=== PATIENT | female | born 1945 | race Caucasian/White ===

== ENCOUNTER 2023-01-03 11:19 | Outpatient (CLI) | payer OTHER | END 2023-01-03 11:25 | disposition home or self-care (01) | LOC: TOM 11:19 | PROVIDERS: ATTEND Specialist | DX: J01.00 Acute maxillary sinusitis, unspecified (principal) ==

== ENCOUNTER 2023-08-29 14:53 | Outpatient (CLI) | payer OTHER | END 2023-08-29 14:55 | disposition home or self-care (01) | LOC: RAD 14:53 | PROVIDERS: ATTEND Specialist | DX: M25.561 Pain in right knee (principal) ==

== ENCOUNTER 2024-09-24 14:26 | Outpatient (CLI) | payer OTHER | END 2024-09-24 14:34 | disposition home or self-care (01) | LOC: RAD 14:26 | PROVIDERS: ATTEND Internal Medicine Rheumatology | DX: M75.81 Other shoulder lesions, right shoulder (principal); M15.8 Other polyosteoarthritis ==

== ENCOUNTER 2024-12-17 13:58 | Outpatient (CLI) | payer OTHER | END 2024-12-17 14:04 | disposition home or self-care (01) | LOC: RAD 13:58 | PROVIDERS: ATTEND Internal Medicine Rheumatology | DX: M54.2 Cervicalgia (principal); M47.812 Spondylosis without myelopathy or radiculopathy, cervical region ==